=== PATIENT | male | born 1970 | race Caucasian/White ===

== ENCOUNTER 2016-09-25 12:00 | Emergency (ER) | payer OTHER ==
[~2016-09-25] VITALS: Ht 182.8 cm; Wt 88.5 kg
[~2016-09-25 12:00] MED LIST: CLARITIN10 MG PO; CYCLOBENZAPRINE10 MG PO; HYDROCODONE BIT1 T11 PO; LISINOPRIL20 MG PO; MEDROL DOSEPAK4 MG PO; MOBIC15 MG PO; NAPROSYN500 MG PO; NORFLEX100 MG PO; ZITHROMAX Z PA250 MG PO; ZITHROMAX250 MG PO; ZOFRAN4 MG PO
[2016-09-25] MEDS ORDERED: NEURONTIN300 MG PO (12:35)
[2016-09-25] MEDS ORDERED: PERCOCET 325 MG1 TA2 PO (12:35)
== END 2016-09-25 15:08 | disposition home or self-care (01) ==
LOC: ED 12:00
DX: M54.5 Low back pain (principal); R03.0 Elevated blood-pressure reading, without diagnosis of hypertension; Z88.6 Allergy status to analgesic agent; Z88.8 Allergy status to other drugs, medicaments and biological substances; Z79.899 Other long term (current) drug therapy

== ENCOUNTER 2017-07-25 00:47 | Emergency (ER) | payer OTHER ==
[~2017-07-25] VITALS: Ht 182.8 cm; Wt 95.3 kg
[~2017-07-25 00:47] MED LIST changes: +NEURONTIN300 MG PO; +PERCOCET 325 MG1 TA2 PO
[2017-07-25] MEDS ORDERED: PERCOCET 10-321 EACH PO (00:53)
== END 2017-07-25 01:11 | disposition home or self-care (01) ==
LOC: ED 00:47
DX: M25.522 Pain in left elbow (principal); M54.5 Low back pain; F10.10 Alcohol abuse, uncomplicated; Z88.8 Allergy status to other drugs, medicaments and biological substances; Z88.6 Allergy status to analgesic agent; Z79.899 Other long term (current) drug therapy; W00.0XXA Fall on same level due to ice and snow, initial encounter; Y93.89 Activity, other specified; Y92.89 Other specified places as the place of occurrence of the external cause; Y99.8 Other external cause status

== ENCOUNTER 2017-08-22 20:27 | Emergency (ER) | payer OTHER ==
[~2017-08-22] VITALS: Ht 182.8 cm; Wt 97.5 kg
[~2017-08-22 20:27] MED LIST changes: +PERCOCET 10-321 EACH PO
[2017-08-22] MEDS ORDERED: CLARITIN10 MG PO (21:16)
[2017-08-22] MEDS ORDERED: FLONASE ALLERG9.9 ML NAS (21:16)
== END 2017-08-22 21:18 | disposition home or self-care (01) ==
LOC: ED 20:27
DX: J06.9 Acute upper respiratory infection, unspecified (principal); Z79.899 Other long term (current) drug therapy; Z88.5 Allergy status to narcotic agent; Z88.8 Allergy status to other drugs, medicaments and biological substances

== ENCOUNTER 2017-12-06 19:11 | Emergency (ER) | payer OTHER ==
[~2017-12-06] VITALS: Ht 182.8 cm; Wt 103.0 kg
[~2017-12-06 19:11] MED LIST changes: +FLONASE ALLERG9.9 ML NAS
[2017-12-06] MEDS ORDERED: PREDNISONE20 M1 PO (20:43)
== END 2017-12-06 21:02 | disposition home or self-care (01) ==
LOC: ED 19:11
DX: L23.7 Allergic contact dermatitis due to plants, except food (principal); Z88.1 Allergy status to other antibiotic agents; Z88.6 Allergy status to analgesic agent; Z88.8 Allergy status to other drugs, medicaments and biological substances; Z79.899 Other long term (current) drug therapy

== ENCOUNTER → 2017-12-20 | Outpatient (CLI) | payer OTHER ==
[~2017-12-20] MED LIST changes: +PREDNISONE20 M1 PO
== END | disposition home or self-care (01) ==
LOC: CT 10:55
DX: R10.13 Epigastric pain (principal)

== ENCOUNTER 2018-04-17 13:54 | Emergency (ER) | payer OTHER | END 2018-04-17 14:59 | disposition home or self-care (01) | LOC: ED 13:54 | DX: S61.210A Laceration without foreign body of right index finger without damage to nail, initial encounter (principal); Z88.1 Allergy status to other antibiotic agents; Z88.6 Allergy status to analgesic agent; Z88.8 Allergy status to other drugs, medicaments and biological substances; Z79.899 Other long term (current) drug therapy; W26.8XXA Contact with other sharp object(s), not elsewhere classified, initial encounter; Y93.89 Activity, other specified; Y92.89 Other specified places as the place of occurrence of the external cause; Y99.8 Other external cause status ==

== ENCOUNTER 2018-12-19 18:20 | Emergency (ER) | payer OTHER ==
[~2018-12-19] VITALS: Ht 182.8 cm; Wt 107.0 kg
== END 2018-12-19 20:29 | disposition home or self-care (01) ==
LOC: ED 18:20
DX: S46.912A Strain of unspecified muscle, fascia and tendon at shoulder and upper arm level, left arm, initial encounter (principal); G89.29 Other chronic pain; Z88.1 Allergy status to other antibiotic agents; Z88.5 Allergy status to narcotic agent; Z88.8 Allergy status to other drugs, medicaments and biological substances; Z79.899 Other long term (current) drug therapy; X50.9XXA Other and unspecified overexertion or strenuous movements or postures, initial encounter; Y93.11 Activity, swimming; Y92.830 Public park as the place of occurrence of the external cause; Y99.8 Other external cause status

== ENCOUNTER 2019-01-18 02:27 | Emergency (ER) | payer OTHER ==
[~2019-01-18] VITALS: Ht 182.8 cm; Wt 98.0 kg
[2019-01-18] MEDS ORDERED: ATARAX,VISTARIL50 MG PO (02:50)
[2019-01-18] MEDS ORDERED: KENALOG 0.1%80 GM T (02:50)
== END 2019-01-18 03:09 | disposition home or self-care (01) ==
LOC: ED 02:27
DX: L23.7 Allergic contact dermatitis due to plants, except food (principal); G89.29 Other chronic pain; Z88.1 Allergy status to other antibiotic agents; Z88.8 Allergy status to other drugs, medicaments and biological substances; Z88.5 Allergy status to narcotic agent; Z79.899 Other long term (current) drug therapy

== ENCOUNTER → 2020-05-12 | Outpatient (CLI) | payer OTHER ==
[~2020-05-12] MED LIST changes: +ATARAX,VISTARIL50 MG PO; +KENALOG 0.1%80 GM T
== END | disposition home or self-care (01) ==
LOC: COVID19 08:54
PROVIDERS: ATTEND Internal Medicine
DX: U07.1 COVID-19 (principal)

== ENCOUNTER 2020-07-15 16:08 | Emergency (ER) | payer OTHER ==
[~2020-07-15] VITALS: Ht 182.8 cm; Wt 94.3 kg
== END 2020-07-15 19:05 | disposition home or self-care (01) ==
LOC: ED 16:08
DX: R22.2 Localized swelling, mass and lump, trunk (principal); F32.9 Major depressive disorder, single episode, unspecified; J45.909 Unspecified asthma, uncomplicated; F25.9 Schizoaffective disorder, unspecified; M19.90 Unspecified osteoarthritis, unspecified site; I10 Essential (primary) hypertension; Z88.1 Allergy status to other antibiotic agents; Z88.8 Allergy status to other drugs, medicaments and biological substances; Z88.5 Allergy status to narcotic agent; Z79.899 Other long term (current) drug therapy; Z87.891 Personal history of nicotine dependence

== ENCOUNTER 2020-08-17 11:33 | Emergency (ER) | payer OTHER ==
[~2020-08-17] VITALS: Ht 154.9 cm; Wt 99.3 kg
[2020-08-17] MEDS ORDERED: NAPROXEN250 MG PO (12:03)
[2020-08-17] MEDS ORDERED: TYLENOL325 M1 PO (12:03)
== END 2020-08-17 12:30 | disposition home or self-care (01) ==
LOC: ED 11:33
DX: S49.91XA Unspecified injury of right shoulder and upper arm, initial encounter (principal); F32.9 Major depressive disorder, single episode, unspecified; J45.909 Unspecified asthma, uncomplicated; F25.9 Schizoaffective disorder, unspecified; I10 Essential (primary) hypertension; E11.9 Type 2 diabetes mellitus without complications; Z88.1 Allergy status to other antibiotic agents; Z88.8 Allergy status to other drugs, medicaments and biological substances; Z88.5 Allergy status to narcotic agent; Z79.899 Other long term (current) drug therapy; Z98.890 Other specified postprocedural states; Z87.891 Personal history of nicotine dependence; W01.0XXA Fall on same level from slipping, tripping and stumbling without subsequent striking against object, initial encounter; Y93.01 Activity, walking, marching and hiking; Y92.89 Other specified places as the place of occurrence of the external cause; Y99.8 Other external cause status

== ENCOUNTER → 2020-09-02 | Outpatient (CLI) | payer OTHER ==
[~2020-09-02] MED LIST changes: +NAPROXEN250 MG PO; +TYLENOL325 M1 PO
== END | disposition home or self-care (01) ==
LOC: US 08-16 10:00
PROVIDERS: ATTEND Internal Medicine
DX: R22.2 Localized swelling, mass and lump, trunk (principal)

== ENCOUNTER 2021-01-05 10:23 | Emergency (ER) | payer OTHER ==
[~2021-01-05] VITALS: Ht 177.8 cm; Wt 94.8 kg
[2021-02-15] MEDS ORDERED: PREDNISONE20 M1 PO (15:55)
== END 2021-01-05 11:08 | disposition home or self-care (01) ==
LOC: ED 10:23
DX: S93.402A Sprain of unspecified ligament of left ankle, initial encounter (principal); E66.9 Obesity, unspecified; Z88.1 Allergy status to other antibiotic agents; Z88.8 Allergy status to other drugs, medicaments and biological substances; Z88.5 Allergy status to narcotic agent; Z79.899 Other long term (current) drug therapy; X50.1XXA Overexertion from prolonged static or awkward postures, initial encounter; Y93.01 Activity, walking, marching and hiking; Y92.512 Supermarket, store or market as the place of occurrence of the external cause; Y99.8 Other external cause status

== ENCOUNTER 2021-02-15 12:55 | Emergency (ER) | payer OTHER ==
[~2021-02-15] VITALS: Ht 180.3 cm; Wt 92.1 kg
[2021-02-15] MEDS ORDERED: PREDNISONE20 M1 PO ×2 (15:55)
== END 2021-02-15 15:59 | disposition home or self-care (01) ==
LOC: ED 12:55
DX: J02.9 Acute pharyngitis, unspecified (principal); J04.0 Acute laryngitis; Z88.1 Allergy status to other antibiotic agents; Z88.8 Allergy status to other drugs, medicaments and biological substances; Z79.899 Other long term (current) drug therapy

== ENCOUNTER 2021-03-02 12:11 | Emergency (ER) | payer OTHER ==
[~2021-03-02] VITALS: Ht 180.3 cm; Wt 92.1 kg
[2021-03-02] MEDS ORDERED: DAILY-VITE TA400 MCG PO (13:42)
[2021-03-02] MEDS ORDERED: MELOXICAM15 MG PO (13:42)
[2021-03-02] MEDS ORDERED: HYDROCODONE-AC1 EACH PO (13:43)
[2021-03-02] MEDS ORDERED: IBU800 M1 PO (13:43)
[2021-03-02] MEDS ORDERED: METFORMIN HYD1000 MG PO (13:44)
[2021-03-02] MEDS ORDERED: CYCLOBENZAPRINE10 MG PO (13:44)
== END 2021-03-02 14:54 | disposition home or self-care (01) ==
LOC: ED 12:11
DX: R50.9 Fever, unspecified (principal); Z20.822 Contact with and (suspected) exposure to COVID-19; R09.81 Nasal congestion; R53.83 Other fatigue; Z88.1 Allergy status to other antibiotic agents; Z88.5 Allergy status to narcotic agent; Z88.8 Allergy status to other drugs, medicaments and biological substances; Z79.899 Other long term (current) drug therapy

== ENCOUNTER 2021-03-06 08:55 | Emergency (ER) | payer OTHER ==
[~2021-03-06] VITALS: Ht 180.3 cm; Wt 93.4 kg
[~2021-03-06 08:55] MED LIST changes: +DAILY-VITE TA400 MCG PO; +HYDROCODONE-AC1 EACH PO; +IBU800 M1 PO; +MELOXICAM15 MG PO; +METFORMIN HYD1000 MG PO
[2021-03-06 09:51] LABS: BASO % 0.6 % (0.0-1.0); EOS # 0.1 10*3/uL (0.0-0.4); EOS % 1.7 % (1.0-4.0); LYMPH # 1.8 10*3/uL (1.3-4.4); MEAN CELL VOLUME 96.7 fl (80.0-94.0); MEAN CORPUSCULAR HGB 31.9 pg (27.0-31.0); MEAN PLATELET VOLUME 9.7 fl (9.6-12.3); MONO # 0.6 10*3/uL (0.1-1.0); MONO % 9.7 % (3.0-9.0); NEUT % 60.7 % (47.0-73.0); PLATELET COUNT AUTOMATED 215 10*3/uL (130-400); RED BLOOD COUNT 4.55 10*6/uL (4.50-5.90); RED CELL DISTRI WIDTH 12.3 % (0-14.5); WHITE BLOOD COUNT 6.6 10*3/uL (4.8-10.8)
[2021-03-06 09:56] LABS: BILIRUBIN Negative (Negative); BLOOD Negative (Negative); CLARITY Clear (Clear); COLOR Yellow (Yellow); GLUCOSE Negative (Negative); KETONE Negative (Negative); LEUKO ESTERASE Negative (Negative); NITRITE Negative (Negative); PH 5.5 (4.5-8.0)
[2021-03-06 10:06] LABS: ALBUMIN 3.6 gm/dl (3.1-4.5); ALKALINE PHOSPHATASE 53 U/L (45-117); BUN 13 mg/dl (7-24); CHLORIDE 106 mmol/L (98-107); CREATININE 0.86 mg/dL (0.70-1.30); SGOT/AST 30 IU/L (3-35); SGPT/ALT 62 U/L (12-78); SODIUM 139 mmol/L (136-145); TOTAL PROTEIN 6.9 gm/dL (6.4-8.2)
[2021-03-06 10:13] LABS: BACTERIA TRACE; EPITHELIAL CELLS 0-2
== END 2021-03-06 11:31 | disposition home or self-care (01) ==
LOC: ED 08:55
PROVIDERS: Emergency Medicine
DX: G89.29 Other chronic pain (principal); M54.9 Dorsalgia, unspecified; R53.83 Other fatigue; Z88.8 Allergy status to other drugs, medicaments and biological substances; Z79.899 Other long term (current) drug therapy

== ENCOUNTER 2021-04-21 08:07 | Emergency (ER) | payer OTHER ==
[~2021-04-21] VITALS: Ht 177 cm; Wt 88.5 kg
[2021-04-21] MEDS ORDERED: AUGMENTIN 875-875 MG PO (09:31)
== END 2021-04-21 09:45 | disposition home or self-care (01) ==
LOC: ED 08:07
DX: H66.91 Otitis media, unspecified, right ear (principal); Z20.822 Contact with and (suspected) exposure to COVID-19; J06.9 Acute upper respiratory infection, unspecified; Z88.1 Allergy status to other antibiotic agents; Z88.8 Allergy status to other drugs, medicaments and biological substances; Z88.5 Allergy status to narcotic agent; Z79.899 Other long term (current) drug therapy

== ENCOUNTER 2022-03-03 11:00 | Emergency (ER) | payer OTHER ==
[~2022-03-03] VITALS: Ht 177.8 cm; Wt 106.6 kg
[~2022-03-03 11:00] MED LIST changes: +AUGMENTIN 875-875 MG PO
[2022-03-03] MEDS ORDERED: QUETIAPINE FUMA50 M1 PO (11:30)
[2022-03-03] MEDS ORDERED: PALIPERIDONE ER6 MG PO (11:30)
[2022-03-03] MEDS ORDERED: LAMOTRIGINE100 MG PO (11:30)
[2022-03-03] MEDS ORDERED: VRAYLAR3 MG PO (11:30)
[2022-03-03] MEDS ORDERED: GABAPENTIN800 MG PO (11:30)
[2022-03-03] MEDS ORDERED: GLIPIZIDE10 M2 PO (11:30)
[2022-03-03] MEDS ORDERED: PRISTIQ100 MG PO (11:31)
[2022-03-03] MEDS ORDERED: PREDNISONE20 M1 PO (14:27)
[2022-03-03] MEDS ORDERED: METHOCARBAMOL500 M1 PO (14:27)
== END 2022-03-03 14:35 | disposition home or self-care (01) ==
LOC: ED 11:00
DX: S20.229A Contusion of unspecified back wall of thorax, initial encounter (principal); S30.0XXA Contusion of lower back and pelvis, initial encounter; Z88.1 Allergy status to other antibiotic agents; Z88.8 Allergy status to other drugs, medicaments and biological substances; Z79.899 Other long term (current) drug therapy; W10.8XXA Fall (on) (from) other stairs and steps, initial encounter; Y93.89 Activity, other specified; Y92.89 Other specified places as the place of occurrence of the external cause; Y99.8 Other external cause status